=== PATIENT | male | born 1955 | race Caucasian/White ===

== ENCOUNTER 2021-06-29 15:26 | Emergency (ER) | payer BC, SELFPAY ==
[2021-06-29 15:29] VITALS: BP 155/91; PULSE 59; RESP 16; TEMP 36.6; O2SAT 97; BMI 26.4
--- NOTE | 2021-06-29 15:44 | CT_ITS ---
PROCEDURE: CT HEAD/BRAIN WO CON CLINICAL INDICATION: guajardo COMPARISON: No exams were available for comparison TECHNIQUE: Axial images obtained. All CT scans at the facility use one or more dose reduction, viz: automated exposure control, ma/kV adjustment per patient size (including targeted exams where dose is matched to indication, i.e. head), or iterative reconstruction technique. FINDINGS: There is a 3.4 x 3.5 cm ill-defined hypodense mass in the right frontal lobe with moderate surrounding edema causing a 1.4 cm midline shift toward the left with compression of the anterior horn of the right lateral ventricle. The margins of the mass are somewhat difficult to delineate. The temporal horn of the left lateral ventricle is slightly prominent suggesting early left-sided hydronephrosis. No intracranial hemorrhage is evident. No additional lesions apparent on this unenhanced exam. Mild mucosal thickening of the ethmoid sinuses. IMPRESSION: 3.5 cm right frontal lobe mass with moderate amount of surrounding edema and midline shift to the left of 1.4 cm with mild dilatation of the left lateral ventricle. Primary or metastatic neoplasm is considered. Suggest MRI without and with contrast for further evaluation. Dictated by: Jordan Luciano MD 06/29/2021 16:24 Jordan Luciano MD in OV 06/29/2021 16:25
--- NOTE | 2021-06-29 16:00 | PC.NURSE ---
pt in ct
[2021-06-29 16:21] VITALS: BP 151/91; PULSE 60; RESP 18; O2SAT 98
[2021-06-29 16:30] VITALS: BP 152/88; PULSE 60; RESP 18; O2SAT 96
--- NOTE | 2021-06-29 16:38 | HMH.EDGENADL ---
ED Disposition Clinical Impression: Brain mass Disposition: Xfer Short-Term Hosp Condition on Discharge: Good Referrals: Azra Echevarria MD [Primary Care Provider] - Time of Disposition: 16:45 - Critical Care Critical Care Time: No Attestation: On 06/29/21, the high probability of a clinically significant, sudden or life threatening deterioration of the following system(s) required my full and direct attention, intervention and personal management. The time I documented below is in addition to time spent performing reported procedures but includes the following listed in this critical care notation. Medical Decision Making - Medical Records Medical records reviewed: Yes: I reviewed the patient's medical records. - Michael Inquiry Pt receiving controlled substance: No Vital Signs: 06/29/21 15:29 06/29/21 16:21 Temperature 97.8 F Temperature Source Oral Pulse Rate 60 Pulse Rate [Right Radial] 59 L Respiratory Rate 16 18 Blood Pressure 151/91 H Blood Pressure [Right Arm] 155/91 H Blood Pressure Mean 111 Blood Pressure Mean [Right Arm] 112 Blood Pressure Source [Right Arm] Automatic Cuff Blood Pressure Position [Right Arm] Sitting 02 Sat by Pulse Oximetry 97 98 Oxygen Delivery Method Room Air Room Air Orders (Tests/Meds): ED MEDICATIONS Generic Name Dose Route Start Last Admin Trade Name Freq PRN Reason Stop Dose Admin Sodium Chloride 1,000 mls @ 999 mls/hr 06/29/21 15:45 06/29/21 16:14 Sod Chlor 0.9% 1000ml Bag IV 06/29/21 16:45 999 mls/hr .[id number] ALIVIA Administration Discontinued Medications Generic Name Dose Route Start Last Admin Trade Name Freq PRN Reason Stop Dose Admin Dexamethasone Sodium Phosphate 6 mg 06/29/21 16:30 06/29/21 16:36 Dexamethasone 4mg/Ml 1ml Vial IV 06/29/21 16:31 6 mg ONCE ONE Administration ORDERS Category Date Time Status Complete Blood Count Auto Diff Stat Lab 06/29/21 16:21 Received Comprehensive Metabolic Panel Stat Lab 06/29/21 16:21 Received - CT Data CT Scan: Head Time Received: 16:[address] Reviewed: Yes: I have reviewed the patient's CT results Preliminary Findings: Abnormal Findings Narrative: Likely mass with vasogenic edema and midline shift. Medical Decision Narrative: 65yo M evaluated for 4 weeks of persistent headache[address] CT scan completed after the patient is placed in a room and radiology reports a 3.5 cm right frontal lobe mass with edema and midline shift. Patient receiving IV dexamethasone and a call was placed to the [facility] for transfer. Case discussed with Dr. Sarmiento who agrees to evaluate the patient upon arrival to . General Adult HPI - General Chief complaint: Headache Stated complaint: CESPEDES Time Seen by Provider: 06/29/21 16:30 Mode of Arrival: Ambulatory Limitations: No Limitations Description of Symptoms (Recalled from ER Triage Doc. by RN): pt reports intermittent headache for approx 4 weeks. Pt reports saw his pcp last week, states he was treated for sinus infections, states he has been taking amoxicillin. Pt reports last week he did have sinus pressure but states that has since went away. pt denies dizziness or vision trouble. - History of Present Illness HPI narrative: 65yo M presents the emergency department secondary to frontal headache ongoing for 4 weeks. Patient's reports headaches are atypical for him. He was seen by his PCP nearly a week ago and started on antibiotics for possible sinusitis. He denies any visual change, nausea with vomiting, dizziness, loss of balance. He does complain that he feels forgetful since his headache started. He denies any previous history of stroke, does not use a blood thinner. Patient has never been a smoker. - Related Data Home Medications Medication Instructions Recorded Confirmed budesonide-formoterol HFA 80 2 puff INHALATION BID 04/20/20 04/16/21 mcg-4.5 mcg/actuation aerosol inhaler Allergies Allergy/Ad
--- NOTE | 2021-06-29 16:39 | PC.NURSE ---
pt up to restroom at this time
--- NOTE | 2021-06-29 16:40 | PC.NURSE ---
contacting [facility] per ER request
--- NOTE | 2021-06-29 16:41 | PC.NURSE ---
KENAN LOCKHART speaking with Dr. Sarmiento at at this time
[2021-06-29 16:43] LABS: Alanine Aminotransferase 23 U/L (12-78); Albumin Level 3.7 g/dl (3.5-5.0); Albumin/Globulin Ratio 1.2 (1.1-1.8); Alkaline Phosphatase 50 U/L (38-126); Anion Gap 9.3 mEq/L (5-15); Aspartate Amino Transferase 33 U/L (17-59); Bilirubin,Total 0.5 mg/dl (0.2-1.3); Blood Urea Nitrogen 13 mg/dl (9-20); Calcium 8.9 mg/dl (8.4-10.2); Carbon Dioxide 28 mmol/L (22.0-30.0); Chloride 103 mmol/L (98-107); Creatinine Clearance Estimated 95 mL/min (50-200); Estimated Glomerular Filt Rate 114 ml/min (>60); GFR (African American) 138 ML/MIN (>60); Glucose 145 mg/dl (74-100); Potassium 4.3 mmoL/L (3.5-5.1); Sodium 136 mmol/L (136-145); Total Protein,Serum 6.7 g/dl (6.3-8.2)
[2021-06-29 17:00] VITALS: BP 154/88; PULSE 62; RESP 18; O2SAT 97
[2021-06-29 17:01] LABS: Basophils # 0.1 K/mm3 (0-0.2); Basophils % 0.9 % (0.1-2.0); Eosinophils # 0.3 K/mm3 (0.0-0.4); Eosinophils % 2.8 % (0.1-12.0); Hematocrit 42.1 % (42.0-52.0); Lymphocytes # 1.4 K/mm3 (0.7-4.5); Lymphocytes % 14.8 % (10-50); Mean Corpuscular HGB Conc 33.2 g/dL (31.8-35.4); Mean Corpuscular Hemoglobin 31.7 pg (27.0-31.2); Mean Corpuscular Volume 95.6 fl (80-94); Mean Platelet Volume 7.9 fl (7.4-10.4); Monocytes # 0.6 K/mm3 (0.1-1.0); Monocytes % 5.8 % (1.7-9.3); Neutrophils # 7.3 K/mm3 (1.8-7.8); Neutrophils % 75.8 % (37.0-80.0); Platelet Count 363 K/mm3 (142-424); Red Cell Distribution Width 13.3 % (11.5-17.5); White Blood Count 9.6 K/mm3 (4.8-10.8)
--- NOTE | 2021-06-29 17:02 | PC.NURSE ---
report called to dallin stewart rn at ER at this time
[2021-06-29 17:21] VITALS: BP 154/81; PULSE 62; RESP 18; TEMP 36.3; O2SAT 98
== END 2021-06-29 17:21 | disposition short-term general hospital (02) ==
PROVIDERS: Emergency Provider Family Medicine; PCP Family Medicine
DX: D43.0 Neoplasm of uncertain behavior of brain, supratentorial (principal); R51.9 Headache, unspecified; R03.0 Elevated blood-pressure reading, without diagnosis of hypertension; J45.909 Unspecified asthma, uncomplicated
CPT/HCPCS: 70450; 80053; 85025; 96365; 99284

== ENCOUNTER → 2022-04-20 10:07 | Outpatient (CLI) | payer BC, SELFPAY ==
[2022-04-20 13:09] LABS: Basophils % 0.6 % (0.1-2.0); Eosinophils # 0.1 K/mm3 (0.0-0.4); Hematocrit 41.5 % (42.0-52.0); Hemoglobin 13.2 g/dL (14.1-18.0); Lymphocytes # 0.4 K/mm3 (0.7-4.5); Mean Corpuscular HGB Conc 31.8 g/dL (31.8-35.4); Mean Corpuscular Hemoglobin 33.6 pg (27.0-31.2); Mean Corpuscular Volume 105.7 fl (80-94); Mean Platelet Volume 8.1 fl (7.4-10.4); Monocytes # 0.2 K/mm3 (0.1-1.0); Monocytes % 6.9 % (1.7-9.3); Neutrophils # 2.5 K/mm3 (1.8-7.8); Neutrophils % 75.5 % (37.0-80.0); Platelet Count 283 K/mm3 (142-424); Red Blood Count 3.93 M/mm3 (4.60-6.20); Red Cell Distribution Width 14.1 % (11.5-17.5); White Blood Count 3.3 K/mm3 (4.8-10.8)
[2022-04-20 13:23] LABS: Alanine Aminotransferase 23 U/L (12-78); Albumin Level 3.7 g/dl (3.5-5.0); Albumin/Globulin Ratio 1.5 (1.1-1.8); Alkaline Phosphatase 71 U/L (38-126); Aspartate Amino Transferase 30 U/L (17-59); Bilirubin,Total < 0.1 mg/dl (0.2-1.3); Blood Urea Nitrogen 14 mg/dl (9-20); Calcium 8.5 mg/dl (8.4-10.2); Carbon Dioxide 25 mmol/L (22.0-30.0); Chloride 106 mmol/L (98-107); Estimated Glomerular Filt Rate 97 ml/min (>60); GFR (African American) 118 ML/MIN (>60); Globulin 2.5 g/dL (1.3-3.2); Glucose 73 mg/dl (74-100); Sodium 137 mmol/L (136-145); Total Protein,Serum 6.2 g/dl (6.3-8.2)
== END ==
PROVIDERS: PCP Family Medicine; Visit Provider Internal Medicine Hematology & Oncology
DX: G93.89 Other specified disorders of brain (principal); C71.9 Malignant neoplasm of brain, unspecified; Z79.899 Other long term (current) drug therapy
CPT/HCPCS: 36415; 80053; 85025

== ENCOUNTER → 2022-05-18 11:55 | Outpatient (CLI) | payer BC, SELFPAY ==
[2022-05-18 12:35] LABS: Basophils % 0.7 % (0.1-2.0); Eosinophils # 0.3 K/mm3 (0.0-0.4); Eosinophils % 6.7 % (0.1-12.0); Hematocrit 37.9 % (42.0-52.0); Hemoglobin 12.1 g/dL (14.1-18.0); Lymphocytes # 0.5 K/mm3 (0.7-4.5); Lymphocytes % 10.6 % (10-50); Mean Corpuscular Hemoglobin 33.8 pg (27.0-31.2); Mean Corpuscular Volume 105.6 fl (80-94); Mean Platelet Volume 7.6 fl (7.4-10.4); Monocytes # 0.5 K/mm3 (0.1-1.0); Monocytes % 10.1 % (1.7-9.3); Neutrophils # 3.3 K/mm3 (1.8-7.8); Neutrophils % 71.9 % (37.0-80.0); Platelet Count 240 K/mm3 (142-424); Red Blood Count 3.59 M/mm3 (4.60-6.20); Red Cell Distribution Width 13.6 % (11.5-17.5); White Blood Count 4.6 K/mm3 (4.8-10.8)
[2022-05-18 13:06] LABS: Alanine Aminotransferase 19 U/L (12-78); Albumin Level 3.7 g/dl (3.5-5.0); Albumin/Globulin Ratio 1.5 (1.1-1.8); Alkaline Phosphatase 68 U/L (38-126); Aspartate Amino Transferase 26 U/L (17-59); Bilirubin,Total 0.1 mg/dl (0.2-1.3); Blood Urea Nitrogen 12 mg/dl (9-20); Calcium 8.7 mg/dl (8.4-10.2); Carbon Dioxide 26 mmol/L (22.0-30.0); Chloride 106 mmol/L (98-107); Estimated Glomerular Filt Rate 114 ml/min (>60); GFR (African American) 137 ML/MIN (>60); Globulin 2.5 g/dL (1.3-3.2); Glucose 86 mg/dl (74-100); Potassium 4.2 mmoL/L (3.5-5.1); Total Protein,Serum 6.2 g/dl (6.3-8.2)
[2022-05-18 13:13] LABS: Anion Gap 9.2 mEq/L (5-15); Sodium 137 mmol/L (136-145)
== END ==
PROVIDERS: PCP Family Medicine; Visit Provider Internal Medicine Hematology & Oncology
DX: C71.9 Malignant neoplasm of brain, unspecified (principal); Z79.899 Other long term (current) drug therapy
CPT/HCPCS: 36415; 80053; 85025

== ENCOUNTER 2023-10-27 17:20 | Outpatient (CLI) | payer MEDICARE, SELFPAY ==
--- NOTE | 2023-10-27 17:35 | MR_ITS ---
PROCEDURE INFORMATION: Exam: MR Head Without and With Contrast Exam date and time: 10/27/2023 6:01 PM Age: 68 years old Clinical indication: Pain; Headache; Prior surgery; Surgery date: 6+ months; Surgery type: Brain surgery; Additional info: Neoplasm of head TECHNIQUE: Imaging protocol: Magnetic resonance imaging of the head without and with contrast. Contrast material: ISOVUE; Contrast volume: 20 ml; Contrast route: IV; COMPARISON: CT HEAD/BRAIN WO CON 06/29/2021 3:56 PM FINDINGS: Major vascular flow voids at the skull base are preserved. No extra-axial fluid collection. There is irregular pathologic enhancement centered at the right frontal lobe measuring up to 7.0 cm AP by 5.0 cm transverse by 4.8 cm cc. Region of abnormal enhancement extends to the subependymal region of the anterior right lateral ventricle. There is extensive abnormal nonenhancing T2 prolongation involving the right cerebrum extending to the left frontal lobe across the corpus callosum. Significant intracranial mass effect with midline shift to the left measuring 11 mm. There is subfalcine herniation. Partial effacement of the right lateral ventricle. No diffusion restriction to indicate acute ischemic infarct. There is right-sided craniotomy. Mild paranasal sinus disease. No significant mastoid effusion. IMPRESSION: 1. Large region of pathologic enhancement centered at the right frontal lobe anteriorly measuring up to 7.0 x 5.0 x 4.8 cm with extensive adjacent nonenhancing T2 prolongation extending to the left frontal lobe via the corpus callosum. Findings compatible with residual/recurrent tumor. T2 prolongation may be on the basis of edema, posttreatment change or infiltrative tumor. 2. Mass effect with midline shift to the left measuring 11 mm. Subfalcine herniation. 3. Additional findings as above.
[2023-10-27 18:14] LABS: Blood Urea Nitrogen 22 mg/dl (9-20); Estimated Glomerular Filt Rate 61 ml/min (>60); GFR (African American) 73 ML/MIN (>60)
[2023-10-27] MEDS: SODIUM CHLORIDE 0.9% 10ML SYR (RAD ONLY) 10 ML IV (19:03)
[2023-10-27] MEDS: GADOTERIDOL INJ 17ML SYRINGE 20 ML IV (19:03)
== END 2023-10-27 23:59 ==
LOC: RAD 17:21
PROVIDERS: PCP Family Medicine; Visit Provider Family Medicine
DX: D49.89 Neoplasm of unspecified behavior of other specified sites (principal)
CPT/HCPCS: 36415; 70553; 82565; 84520; A9576

== ENCOUNTER 2023-10-30 15:33 | Emergency (ER) | payer MEDICARE, SELFPAY ==
[2023-10-30 15:34] VITALS: BP 133/76; PULSE 73; RESP 20; TEMP 36.7; O2SAT 96; BMI 29.4
--- NOTE | 2023-10-30 16:34 | ED_ITS ---
Discharge Plan Disposition Patient Disposition: Xfer Other Chief Complaint: Headache Prescriptions Prescriptions: No Action budesonide-formoterol [Symbicort] 80-4.5 mcg/actuation HFA aerosol inhaler 2 puff INHALATION BID Referrals Follow up/Referrals: Azar Echevarria MD [Primary Care Provider] - See instructions Clinical Impressions Clinical Impression: Vasogenic brain edema, Brain mass, Midline shift of brain, Brain herniation Discharge ED Provider: Ishmael Traylor General Adult HPI General Chief complaint: Headache Stated complaint: MRI showed a growing tumor in brain Time Seen by Provider: 10/30/23 16:07 Mode of Arrival: Ambulatory Source of Information: Patient Limitations: No Limitations Description of Symptoms (Recalled from ER Triage Doc. by RN): pt was seen at [facility] on monday and had mri done here at [facility] monday night. CC [phone] called patient at home today and told them to get to closest ER due to MRI results that showed increase brain pressure. upon triage patient has no worsening s/s and is neurologically intact and appropriate. pt states he was given steroids on monday and reports feeling better/improved over the weekend and today. pt has hx of brain tumor that was removed in aug 2021 at but patient was not happy last time at so this time when s/s started back again they requested to go to [facility] History of Present Illness HPI narrative: Patient is a 68-year-old male who was diagnosed in 2020 with a glioblastoma multiforme stage IV underwent resection [facility] and was having surveillance scans done up through April of this last year at which point they had a small lesion that they did not know whether or not it was a recurrence of disease or not. At that point the family was not happy with the care that they were receiving and they went and found a new doctor at [facility], Dr. Osborne. The patient since the end of August has been having difficulty with his left upper extremity and states that he had an MRI that was done this past Monday he was started on some steroids at that time but his neurosurgeon called him 1 hour prior to arrival today and told him to come to the emergency department because of significant edema. He is not aware of any other findings etc. The patient is not on hospice and has had significant quality of life recently and has been doing very well since his surgery in 2020. Related Data Home Medications Medication Instructions Recorded Confirmed budesonide-formoterol HFA 80 2 puff inhalation BID 04/20/20 04/16/21 mcg-4.5 mcg/actuation aerosol inhaler (Symbicort) Allergies Allergy/AdvReac Type Severity Reaction Status Date / Time FISH PROTEIN Allergy Unknown Uncoded 04/20/20 08:28 [facility] Disclaimer: The information contained in this section may have been updated after the patient was seen, as this information can be updated by other users. Social History Smoking Status: Never smoker alcohol intake: current substance use type: denies use current occupational status: employed Travel in the last 8 weeks: Inside the [facility] ([place]) household members: family housing: house ROS Obtained: Yes All systems reviewed & no additional complaints except as documented Physical Exam General General appearance: alert Respiratory Respiratory exam: Present normal lung sounds bilaterally Cardiovascular Cardiovascular exam: Present regular rate Neurological Exam Neurological exam: Present alert Medical Decision Making Michael Inquiry Pt receiving controlled substance: No Michael was queried for this patient: No Risks and benefits of using a controlled substance: were discussed with pt by me Vital Signs: 10/30/23 15:34 Temperature 98.0 F Temperature Source Oral Pulse Rate [Right Radial] 73 Respiratory Rate 20 Blood Pressure [Right Arm] 133/76 Blood Pressure Mean [Right Arm] 95 02 Sat by Pulse Oximetry 96 Oxygen Delivery Method Room Air Orders (Tests/Meds): ED MEDICATIONS Generic Name Dose Route Start Last Admin Trade Name Freq PRN Reason Stop Dose Admin Sodium Chloride 10 ml 10/30/23 16:48 Sodium Chloride 0.9% 10ml Flush Syringe IV 11/29/23 16:47 NEEDED PRN Maintain IV Site Discontinued Medications Generic Name Dose Route Start Last Admin Trade Name Freq PRN Reason Stop Dose Admin Dexamethasone Sodium Phosphate 10 mg 10/30/23 16:33 10/30/23 16:50 Dexamethasone 4mg/Ml 1ml Vial IV 10/30/23 16:34 10 mg ONCE ONE Administration Medical Decision Narrative: I reviewed the patient's MRI from the hospital which shows a 7 x 5 cm mass which is most likely recurrent tumor with significant vasogenic edema midline shift and subfalcine herniation. 10 mg of IV dexamethasone have been administered. I had extensive discussion with the patient regarding goals of care and he and his family are not sure as to exactly what they want to do. In the meantime we will go ahead and discussed the case with Dr. Osborne at [facility]. The patient certainly needs to be in for another neurosurgeon with the significant abnormalities that we are currently seeing on the MRI. They are aware of this. After I discussed the case with his physician at [facility] we will again discuss the case with the patient and see what he would like to do. Reassessment 5:57 PM I discussed the case with Dr. Osborne at the [facility] who very strongly advised that the patient be transferred emergently to be seen by neurosurgeon. Given the fact that we have only local EMS crews and the patient is not unstable enough to fly at the moment we opted to not utilize local EMS crew to take the patient to [place] and we both agreed that the local neurosurgical intervention or evaluation was most warranted. Dr. Rubio very specifically advised that the patient go to the [facility] which I agreed with and discussed the case with the patient and the patient's family and they agreed to this as well. They are not sure if an operation is offered if they would like to have that done at [facility] but know that that is the purpose for the transfer. I spoke with Dr. Philippe as well as Dr. Horner at the transfer center and everyone is on the same page with this. It is possible that patient may refuse transfer or go comfort care once he is evaluated by neurosurgery is possible that he may want to be transferred to [facility] depending on the conversation but he is specifically being transferred to for discussion of possible neurosurgical intervention in the acute care setting. Images were shared. Patient was given 10 of IV dexamethasone. He was transferred in stable condition with GCS of 15 and his only neurologic deficit at the moment is left upper extremity weakness. Critical Care Critical Care Time Critical Care Time: Yes Attestation: On 10/30/23, the high probability of a clinically significant, sudden or life threatening deterioration of the following system(s) required my full and direct attention, intervention and personal management. The time I documented below is in addition to time spent performing reported procedures but includes the following listed in this critical care notation. Total Time Total Critical Care Time: 35
[2023-10-30] MEDS: DEXAMETHASONE 4MG/ML 1ML VIAL 10 MG IV (16:50)
--- NOTE | 2023-10-30 17:29 | PC.NURSE ---
called for transfer, dr narvaez speaking to er transfer center
--- NOTE | 2023-10-30 17:46 | PC.NURSE ---
Dr Hayes and Dr Horner accepting pt.
--- NOTE | 2023-10-30 17:57 | PC.NURSE ---
Called report to Transition Unit 2 room M [facility]. all questions answered, ems has been made aware of transfer
[2023-10-30 18:18] VITALS: BP 134/78; PULSE 65; RESP 20; TEMP 36.7; O2SAT 100
== END 2023-10-30 18:28 | disposition other institution (70) ==
PROVIDERS: Emergency Provider Student in an Organized Health Care Education/Training Program; PCP Family Medicine
DX: G93.6 Cerebral edema (principal); G93.5 Compression of brain; G93.89 Other specified disorders of brain; R90.89 Other abnormal findings on diagnostic imaging of central nervous system
CPT/HCPCS: 96374; 99285

== ENCOUNTER 2023-11-15 03:38 | Emergency (ER) | payer MEDICARE, SELFPAY ==
[2023-11-15] VITALS (17 sets, daily range): BP systolic 108–206; BP diastolic 81–105; PULSE 58–87; RESP 16–30; TEMP 36.9–38.5; O2SAT 93–100; BMI 29.4
--- NOTE | 2023-11-15 03:41 | ED_ITS ---
Discharge Plan Disposition Patient Disposition: Xfer Other Prescriptions Prescriptions: No Action budesonide-formoterol [Symbicort] 80-4.5 mcg/actuation HFA aerosol inhaler 2 puff INHALATION BID Referrals Follow up/Referrals: Azar Echevarria MD [Primary Care Provider] - See instructions Clinical Impressions Clinical Impression: Acute facial pain, Seizure-like activity, Post-operative complication, GBM (glioblastoma multiforme), Status post craniotomy Coma Qualifiers: Coma depth: Catarina coma 3-8 Coma timing: unspecified coma timing Qualified Code(s): R40.2430 - Shaji coma scale score 3-8, unspecified time Discharge ED Provider: Kaleb Sims General Adult HPI <Kaleb Sims MD - Last Filed: 11/15/23 07:30> General Chief complaint: PAIN Stated complaint: brain surgery 2 weeks ago, headache, swelling Time Seen by Provider: 11/15/23 03:41 History of Present Illness HPI narrative: 68-year-old male with history of glioblastoma presents with worsening facial pain. Patient had glioblastoma resected several years ago. He had recurrence of symptoms and had severe edema approximately 2 weeks ago, was transferred to from this hospital and was admitted for emergency surgery with neurosurgery. He had resection of glioblastoma at that time. He has been doing relatively well in the interim. He has been taking dexamethasone and Tylenol. He developed more severe pain over the right forehead. He has developed swelling in that area as well as swelling over the eye. Reports no fever at home. Related Data Home Medications Medication Instructions Recorded Confirmed budesonide-formoterol HFA 80 2 puff inhalation BID 04/20/20 04/16/21 mcg-4.5 mcg/actuation aerosol inhaler (Symbicort) Allergies Allergy/AdvReac Type Severity Reaction Status Date / Time FISH PROTEIN Allergy Unknown Uncoded 04/20/20 08:28 PFS <Kaleb Sims MD - Last Filed: 11/15/23 07:30> [facility] Disclaimer: The information contained in this section may have been updated after the patient was seen, as this information can be updated by other users. Social History Smoking Status: Never smoker alcohol intake: current substance use type: denies use current occupational status: employed Travel in the last 8 weeks: Inside the [facility] ([place]) household members: family housing: house <Kaleb Sims MD - Last Filed: 11/15/23 07:30> ROS Obtained: Yes All systems reviewed & no additional complaints except as documented Physical Exam <Kaleb Sims MD - Last Filed: 11/15/23 07:30> General General appearance: alert Comment: Uncomfortable appearing Head Head exam: atraumatic and other (Patient has semicircular line of doroteo over his craniotomy site in the right frontal parietal scalp. The staple line is well appearing, no bleeding, no erythema. The skin between the staple line and the eye is mildly erythematous and warm, no induration. The eyelids are edematous) Eye Eye exam: Present PERRL, EOMI and other (Pearlescent edema of the right upper and lower eyelid, minimal conjunctival injection noted. Patient reports normal vision.) ENT ENT exam: Present normal oropharynx and normal external ear exam Neck Neck exam: Present normal inspection and full ROM Chest Chest inspection: Present normal inspection and symmetric chest wall rise; Absent tenderness Respiratory Respiratory exam: Present normal lung sounds bilaterally; Absent respiratory distress Cardiovascular Cardiovascular exam: Present regular rate and normal rhythm Abdominal Exam Abdominal exam: Present soft; Absent distention, tenderness or guarding Extremities Exam Extremities exam: Present normal inspection; Absent edema or joint swelling Back Exam Back exam: Present normal inspection; Absent tenderness Neurological Exam Neurological exam: Present alert and oriented X3; Absent motor sensory deficit Psychiatric Psychiatric exam: Present normal affect and normal mood Skin Skin exam: Present warm, dry and normal color Lymphatic Lymphatic Findings: no adenopathy Medical Decision Making <Kaleb Sims MD - Last Filed: 11/15/23 07:30> Medical Records Medical records reviewed: Yes I reviewed the patient's medical records. Michael Inquiry Pt receiving controlled substance: No Michael was queried for this patient: No Vital Signs: 11/15/23 03:40 11/15/23 04:01 11/15/23 04:30 Temperature 98.4 F Temperature Source Oral Pulse Rate 74 79 Pulse Rate [Right Radial] 81 Respiratory Rate 20 Blood Pressure 108/94 L 164/89 H Blood Pressure [Right Arm] 170/89 H Blood Pressure Mean [Right Arm] 116 Blood Pressure Source [Right Arm] Automatic Cuff Blood Pressure Position [Right Arm] Sitting 02 Sat by Pulse Oximetry 98 98 97 Oxygen Delivery Method Room Air Room Air Room Air 11/15/23 05:20 11/15/23 05:30 11/15/23 05:47 Temperature Temperature Source Pulse Rate 87 85 76 Pulse Rate [Right Radial] Respiratory Rate Blood Pressure 188/90 H 158/88 H 158/88 H Blood Pressure [Right Arm] Blood Pressure Mean [Right Arm] Blood Pressure Source [Right Arm] Blood Pressure Position [Right Arm] 02 Sat by Pulse Oximetry 93 L 95 96 Oxygen Delivery Method Room Air Room Air Room Air Lab Data Lab results reviewed: Yes I reviewed the patient's lab results. Lab Results 11/15/23 04:08: WBC 17.1 H, RBC 4.30 L, Hgb 14.3, Hct 42.5, MCV 98.9 H, MCH 33.2 H, MCHC 33.6, RDW 14.0, Plt Count 224, MPV 8.0, Neut % (Auto) 92.5 H, Lymph % (Auto) 3.8 L, [place] % (Auto) 3.3, Eos % (Auto) 0.3, Baso % (Auto) 0.1, Neut # (Auto) 15.8 H, Lymph # (Auto) 0.7, [place] # (Auto) 0.6, Eos # (Auto) 0.1, Baso # (Auto) 0.0, Total Counted 100, Neutrophils % (Manual) 90 H, Lymphocytes % (Manual) 6 L, Monocytes % (Manual) 4, Platelet Estimate Normal, Macrocytosis 1+, Sodium 134 L, Potassium 4.4, Chloride 103, Carbon Dioxide 33 H, Anion Gap 2.4 L, BUN 20, Creatinine 0.80, Estimated Creat Clear 101, Estimated GFR 97, Est GFR ( Amer) 117, Glucose 133 H, Calcium 7.9 L, Total Bilirubin 0.4, AST 36, ALT 52, Alkaline Phosphatase 59, Total Protein 5.8 L, Albumin 3.2 L, Globulin 2.6, Albumin/Globulin Ratio 1.2 11/15/23 04:08 11/15/23 04:08 Orders (Tests/Meds): ED MEDICATIONS Generic Name Dose Route Start Last Admin Trade Name Freq PRN Reason Stop Dose Admin Propofol 100 mls @ 5.906 mls/hr 11/15/23 07:30 11/15/23 07:31 Diprivan 10mg/Ml 100ml Bottle IV 12/15/23 07:29 10 mcg/kg/min .[id number] ALIVIA 5.91 mls/hr Administration Protocol 10 MCG/KG/MIN Discontinued Medications Generic Name Dose Route Start Last Admin Trade Name Kassy PRN Reason Stop Dose Admin Dexamethasone Sodium Phosphate 4 mg 11/15/23 07:30 11/15/23 07:38 Dexamethasone 4mg/Ml 1ml Vial IV 11/15/23 07:31 4 mg ONCE ONE Administration Diazepam 2 mg 11/15/23 05:03 11/15/23 05:12 Diazepam 10mg/2ml Syringe IV 11/15/23 05:04 2 mg ONCE ONE Administration Levetiracetam 4,000 mg/ Sodium 140 mls @ 280 mls/hr 11/15/23 07:13 11/15/23 07:26 Chloride IV 11/15/23 07:14 280 mls/hr ONCE ONE Administration Iopamidol 100 ml 11/15/23 05:22 11/15/23 05:23 Iopamidol-370 (76%);100ml Bottle IV 11/15/23 05:23 100 ml ONCE ONE Administration Lidocaine 1 each 11/15/23 03:57 11/15/23 04:03 Lidocaine 5% Transdermal Patch TP 11/15/23 03:58 1 each ONCE ONE Administration Morphine Sulfate 4 mg 11/15/23 04:02 11/15/23 04:07 Morphine 4mg/Ml Syringe IV 11/15/23 04:03 4 mg ONCE ONE Administration Ondansetron HCl 4 mg 11/15/23 04:04 11/15/23 04:07 Ondansetron 4mg/2ml Vial IV 11/15/23 04:05 4 mg ONCE ONE Administration Ondansetron HCl 4 mg 11/15/23 05:53 11/15/23 05:55 Ondansetron 4mg/2ml Vial IV 11/15/23 05:54 4 mg ONCE ONE Administration Promethazine HCl 25 mg 11/15/23 05:03 11/15/23 05:12 Promethazine Hcl 25mg/Ml 1ml Vial IV 11/15/23 05:04 25 mg ONCE ONE Administration Sodium Chloride 25 ml 11/15/23 05:03 Sodium Chloride 0.9% 25ml Bag IV 11/15/23 05:04 ONCE ONE Sodium Chloride 10 ml 11/15/23 05:22 11/15/23 05:23 Sodium Chloride 0.9% 10ml Syr (Rad Only) IV 11/15/23 05:23 10 ml ONCE ONE Administration ORDERS Category Date Time Status CT head/brain wo/w con Stat Cat Scan 11/15/23 04:02 Completed CXR --portable [XR chest portable] Stat Exams 11/15/23 06:23 Taken Chest XR -- portable [XR chest portable] Stat Exams 11/15/23 07:41 Taken KUB (single view) [XR KUB] Stat Exams 11/15/23 07:58 Ordered CBC w/Auto Diff [Complete Blood Count Auto Diff] Stat Lab 11/15/23 04:08 Completed CMP [Comprehensive Metabolic Panel] Stat Lab 11/15/23 04:08 Completed Blood Culture Stat Micro 11/15/23 04:08 Received Sputum Culture & Gram Stain Stat Micro 11/15/23 07:48 Received Medical Decision Narrative: 68-year-old male with history of glioblastoma status post recent craniotomy and resection 2 weeks ago presents with worsening facial edema, pain inferior to the craniotomy site. History was obtained interactive discussion with patient, family, chart review. On arrival, patient is [afebrile, hemodynamically stable, satting appropriately, alert, oriented x4, GCS 15], moving all extremities spontaneously. Full physical exam performed and significant for erythema and edema without induration or purulent drainage of the skin inferior to the craniotomy site. The incision site is otherwise well-appearing. There is edema of the eyelids concerning for possible preseptal cellulitis. Differential includes but is not limited to abscess, cellulitis, preseptal cellulitis, preseptal cellulitis, intracranial bleeding, intracranial abscess. Patient was given 4 mg Zofran, 4 mg morphine for symptomatic management and correction of underlying abnormalities. Workup initiated including CBC CMP blood cultures CT head with, CT head without. Prior to the CT I discussed with patient regarding his reported IV contrast allergy. He reports that he has never had an anaphylactic reaction, he does not get a rash, no airway swelling, but every time he gets IV contrast he has severe nausea and vomiting. I discussed with him the risks and benefits and we elected to proceed with the IV contrast. After CT patient had copious and persistent vomiting. Was given additional Zofran, Phenergan and 2 mg of Valium for nausea and vomiting. Patient continued to have fairly significant vomiting and may have had aspiration. X-ray was ordered. Patient is somewhat drowsy after the antiemetic medications. Laboratory workup independently interpreted by me and significant for leukocytosis with white count of 17, unclear diagnostic value given recent steroid usage. Unremarkable CMP Imaging independently interpreted by me and significant for postoperative changes noted within the brain with extensive right frontal lobe edema and some blood within the right subdural space and small amount of pneumocephalus. Small amount of shift noted. The subcutaneous tissues of the frontal scalp show edema and possible small fluid collection.. See radiology read for full review of final results. Given concern for developing postoperative infection, the [facility] was called for discussion with neurosurgery. On further reassessment, patient continues to vomit. His mental status has worsened despite having time for the medications to metabolize, he is now GCS of 6 and is not responding to commands where he previously was completely alert and oriented. He appears to have some involuntary movements of his upper extremities that are concerning for seizure/status epilepticus. Patient was loaded with 4 g of Keppra and given dexamethasone. Given worsening mental status, aspiration risk and concern for ongoing seizure activity, patient will be intubated for airway protection. <Leonardo Chandler MD - Last Filed: 11/15/23 08:04> Vital Signs: 11/15/23 03:40 11/15/23 04:01 11/15/23 04:30 Temperature 98.4 F Temperature Source Oral Pulse Rate 74 79 Pulse Rate [Right Radial] 81 Respiratory Rate 20 Blood Pressure 108/94 L 164/89 H Blood Pressure [Right Arm] 170/89 H Blood Pressure Mean [Right Arm] 116 Blood Pressure Source [Right Arm] Automatic Cuff Blood Pressure Position [Right Arm] Sitting 02 Sat by Pulse Oximetry 98 98 97 Oxygen Delivery Method Room Air Room Air Room Air 11/15/23 05:20 11/15/23 05:30 11/15/23 05:47 Temperature Temperature Source Pulse Rate 87 85 76 Pulse Rate [Right Radial] Respiratory Rate Blood Pressure 188/90 H 158/88 H 158/88 H Blood Pressure [Right Arm] Blood Pressure Mean [Right Arm] Blood Pressure Source [Right Arm] Blood Pressure Position [Right Arm] 02 Sat by Pulse Oximetry 93 L 95 96 Oxygen Delivery Method Room Air Room Air Room Air Lab Data Lab Results 11/15/23 04:08: WBC 17.1 H, RBC 4.30 L, Hgb 14.3, Hct 42.5, MCV 98.9 H, MCH 33.2 H, MCHC 33.6, RDW 14.0, Plt Count 224, MPV 8.0, Neut % (Auto) 92.5 H, Lymph % (Auto) 3.8 L, [place] % (Auto) 3.3, Eos % (Auto) 0.3, Baso % (Auto) 0.1, Neut # (Auto) 15.8 H, Lymph # (Auto) 0.7, [place] # (Auto) 0.6, Eos # (Auto) 0.1, Baso # (Auto) 0.0, Total Counted 100, Neutrophils % (Manual) 90 H, Lymphocytes % (Manual) 6 L, Monocytes % (Manual) 4, Platelet Estimate Normal, Macrocytosis 1+, Sodium 134 L, Potassium 4.4, Chloride 103, Carbon Dioxide 33 H, Anion Gap 2.4 L, BUN 20, Creatinine 0.80, Estimated Creat Clear 101, Estimated GFR 97, Est GFR ( Amer) 117, Glucose 133 H, Calcium 7.9 L, Total Bilirubin 0.4, AST 36, ALT 52, Alkaline Phosphatase 59, Total Protein 5.8 L, Albumin 3.2 L, Globulin 2.6, Albumin/Globulin Ratio 1.2 Orders (Tests/Meds): ED MEDICATIONS Generic Name Dose Route Start Last Admin Trade Name Freq PRN Reason Stop Dose Admin Propofol 100 mls @ 5.906 mls/hr 11/15/23 07:30 11/15/23 07:31 Diprivan 10mg/Ml 100ml Bottle IV 12/15/23 07:29 10 mcg/kg/min .[id number] ALIVIA 5.91 mls/hr Administration Protocol 10 MCG/KG/MIN Discontinued Medications Generic Name Dose Route Start Last Admin Trade Name Freq PRN Reason Stop Dose Admin Dexamethasone Sodium Phosphate 4 mg 11/15/23 07:30 11/15/23 07:38 Dexamethasone 4mg/Ml 1ml Vial IV 11/15/23 07:31 4 mg ONCE ONE Administration Diazepam 2 mg 11/15/23 05:03 11/15/23 05:12 Diazepam 10mg/2ml Syringe IV 11/15/23 05:04 2 mg ONCE ONE Administration Levetiracetam 4,000 mg/ Sodium 140 mls @ 280 mls/hr 11/15/23 07:13 11/15/23 07:26 Chloride IV 11/15/23 07:14 280 mls/hr ONCE ONE Administration Iopamidol 100 ml 11/15/23 05:22 11/15/23 05:23 Iopamidol-370 (76%);100ml Bottle IV 11/15/23 05:23 100 ml ONCE ONE Administration Lidocaine 1 each 11/15/23 03:57 11/15/23 04:03 Lidocaine 5% Transdermal Patch TP 11/15/23 03:58 1 each ONCE ONE Administration Morphine Sulfate 4 mg 11/15/23 04:02 11/15/23 04:07 Morphine 4mg/Ml Syringe IV 11/15/23 04:03 4 mg ONCE ONE Administration Ondansetron HCl 4 mg 11/15/23 04:04 11/15/23 04:07 Ondansetron 4mg/2ml Vial IV 11/15/23 04:05 4 mg ONCE ONE Administration Ondansetron HCl 4 mg 11/15/23 05:53 11/15/23 05:55 Ondansetron 4mg/2ml Vial IV 11/15/23 05:54 4 mg ONCE ONE Administration Promethazine HCl 25 mg 11/15/23 05:03 11/15/23 05:12 Promethazine Hcl 25mg/Ml 1ml Vial IV 11/15/23 05:04 25 mg ONCE ONE Administration Sodium Chloride 25 ml 11/15/23 05:03 Sodium Chloride 0.9% 25ml Bag IV 11/15/23 05:04 ONCE ONE Sodium Chloride 10 ml 11/15/23 05:22 11/15/23 05:23 Sodium Chloride 0.9% 10ml Syr (Rad Only) IV 11/15/23 05:23 10 ml ONCE ONE Administration ORDERS Category Date Time Status CT head/brain wo/w con Stat Cat Scan 11/15/23 04:02 Completed CXR --portable [XR chest portable] Stat Exams 11/15/23 06:23 Taken Chest XR -- portable [XR chest portable] Stat Exams 11/15/23 07:41 Taken KUB (single view) [XR KUB] Stat Exams 11/15/23 07:58 Ordered CBC w/Auto Diff [Complete Blood Count Auto Diff] Stat Lab 11/15/23 04:08 Completed CMP [Comprehensive Metabolic Panel] Stat Lab 11/15/23 04:08 Completed Blood Culture Stat Micro 11/15/23 04:08 Received Sputum Culture & Gram Stain Stat Micro 11/15/23 07:48 Received Medical Decision Narrative: 68-year-old male with history of glioblastoma status post recent craniotomy and resection 2 weeks ago presents with worsening facial edema, pain inferior to the craniotomy site. History was obtained interactive discussion with patient, family, chart review. On arrival, patient is afebrile, hemodynamically stable, satting appropriately, alert, oriented x4, GCS 15, moving all extremities spontaneously. Full physical exam performed and significant for erythema and edema without induration or purulent drainage of the skin inferior to the craniotomy site. The incision site is otherwise well-appearing. There is edema of the eyelids concerning for possible preseptal cellulitis. Differential includes but is not limited to abscess, cellulitis, preseptal cellulitis, preseptal cellulitis, intracranial bleeding, intracranial abscess. Patient was given 4 mg Zofran, 4 mg morphine for symptomatic management and correction of underlying abnormalities. Workup initiated including CBC CMP blood cultures CT head with, CT head without. Prior to the CT I discussed with patient regarding his reported IV contrast allergy. He reports that he has never had an anaphylactic reaction, he does not get a rash, no airway swelling, but every time he gets IV contrast he has severe nausea and vomiting. I discussed with him the risks and benefits and we elected to proceed with the IV contrast. After CT patient had copious and persistent vomiting. Was given additional Zofran, Phenergan and 2 mg of Valium for nausea and vomiting. Patient continued to have fairly significant vomiting and may have had aspiration. X-ray was ordered. Patient is somewhat drowsy after the antiemetic medications. Laboratory workup independently interpreted by me and significant for leukocytosis with white count of 17, unclear diagnostic value given recent steroid usage. Unremarkable CMP Imaging independently interpreted by me and significant for postoperative changes noted within the brain with extensive right frontal lobe edema and some blood within the right subdural space and small amount of pneumocephalus. Small amount of shift noted. The subcutaneous tissues of the frontal scalp show edema and possible small fluid collection.. See radiology read for full review of final results. Given concern for developing postoperative infection, the [facility] transfer center was called for discussion with neurosurgery. On further reassessment, patient continues to vomit. His mental status has worsened despite having time for the medications to metabolize, he is now GCS of 6 and is not responding to commands where he previously was completely alert and oriented. He appears to have some involuntary movements of his upper extremities that are concerning for seizure/status epilepticus. Patient was michaela ded with 4 g of Keppra and given dexamethasone. Given worsening mental status, aspiration risk and concern for ongoing seizure activity, patient will be intubated for airway protection. Geraldine: I assume primary responsibility for this patient after signout from previous physician. After shift change, Dr. Sims assisted with continued patient care. Patient was recently given multiple sedative medications including Valium, Phenergan, among others in order to prevent vomiting and allow for obtaining CT scans of the head. Because sedative medications used, initially unsure if patient mental status to medications versus worsening medical condition. On my exam, patient has GCS 6, patient not following peripheral or central commands. Right eye 4 mm and minimally reactive, left eye 3 mm and minimally reactive. Patient having flexion of left upper extremity, extension of right upper extremity with associated intermittent clonic movements. Saturating 95% on room air intermittently vomiting. At this time it was opted to proceed with intubation after discussing goals of care with family. Intubation was performed by me, Dr. Sims contacted [facility] for further discussion of definitive care after transfer. Goals of care discussion was had with patient's power of trade mark attorney who is at bedside, she opted for full code at this time. Patient was given Keppra, dexamethasone. Patient was intubated using succinylcholine and etomidate. Postintubation chest x-ray was ordered, OG tube was placed. Postintubation sedation with propofol given concern for possible seizures. Postintubation chest x-ray with tube in place. OG tube difficult to discern inferior to cardiac pad, however it appears to be below the diaphragm. Gastric contents and tube. KUB was ordered to confirm. Because patient high risk for clinical decompensation if discharged, deemed appropriate for transfer and inpatient admission. Results were relayed to patient family who voiced understanding and patient was agreeable to transfer, inpatient admission, and management. Patient was graciously accepted and transferred to [facility] for further definitive management, under Dr. Mcneal. Procedures <Kaleb Sims MD - Last Filed: 11/15/23 07:30> Risk/Benefits of Procedure(s) Were Explained: Yes Critical Care <Kaleb Sims MD - Last Filed: 11/15/23 07:30> Critical Care Time Critical Care Time: Yes Attestation: On 11/15/23, the high probability of a clinically significant, sudden or life threatening deterioration of the following system(s) respiratory required my full and direct attention, intervention and personal management. The time I documented below is in addition to time spent performing reported procedures but includes the following listed in this critical care notation. Total Time Total Critical Care Time: 45 <Leonardo Chandler MD - Last Filed: 11/15/23 08:04> Total Time Total Critical Care Time: 60
--- NOTE | 2023-11-15 04:02 | CT_ITS ---
PROCEDURE INFORMATION: Exam: CT Head Without And With Contrast Exam date and time: 11/15/2023 4:58 AM Age: 68 years old Clinical indication: Pain; Additional info: Recent gbm resection, pain/swelling at incision TECHNIQUE: Imaging protocol: Computed tomography of the head without and with contrast. Radiation optimization: All CT scans at this facility use at least one of these dose optimization techniques: automated exposure control; mA and/or kV adjustment per patient size (includes targeted exams where dose is matched to clinical indication); or iterative reconstruction. Contrast material: ISOVUE; Contrast volume: 100 ml; Contrast route: IV; COMPARISON: MR HEAD/BRAIN WO/W CON 10/27/2023 6:01 PM FINDINGS: Brain: A small amount of pneumocephalus is noted. There is extensive edema in the right frontal and parietal lobe. The basilar cisterns are well maintained. There is some hemorrhagic fluid seen in the surgical bed on the right. Cerebral ventricles: No ventriculomegaly. Paranasal sinuses: Visualized sinuses are unremarkable. No fluid levels. Mastoid air cells: Visualized mastoid air cells are well aerated. Bones/joints: Postsurgical change following recent right frontal craniotomy. Soft tissues: Subcutaneous edema is also present in the surgical bed. There is 1-2 mm of right to left shift. IMPRESSION: Extensive postoperative changes following right frontal craniotomy. Some blood is seen within the right subdural space and a small amount of pneumocephalus remains. Extensive right frontal lobe edema is present. Minimal 1-2 mm of right to left shift present.
[2023-11-15] MEDS: LIDOCAINE 5% TRANSDERMAL PATCH 1 EACH TP (04:03)
[2023-11-15] MEDS: MORPHINE 4MG/ML SYRINGE 4 MG IV (04:07)
[2023-11-15] MEDS: ONDANSETRON 4MG/2ML VIAL 4 MG IV ×2 (04:07→05:55)
[2023-11-15 04:24] LABS: Basophils % 0.1 % (0.1-2.0); Eosinophils # 0.1 K/mm3 (0.0-0.4); Eosinophils % 0.3 % (0.1-12.0); Hematocrit 42.5 % (42.0-52.0); Hemoglobin 14.3 g/dL (14.1-18.0); Lymphocytes # 0.7 K/mm3 (0.7-4.5); Lymphocytes % 3.8 % (10-50); Mean Corpuscular HGB Conc 33.6 g/dL (31.8-35.4); Mean Corpuscular Hemoglobin 33.2 pg (27.0-31.2); Mean Corpuscular Volume 98.9 fl (80-94); Monocytes # 0.6 K/mm3 (0.1-1.0); Monocytes % 3.3 % (1.7-9.3); Neutrophils # 15.8 K/mm3 (1.8-7.8); Neutrophils % 92.5 % (37.0-80.0); Platelet Count 224 K/mm3 (142-424); White Blood Count 17.1 K/mm3 (4.8-10.8)
[2023-11-15 04:25] LABS: MANUAL DIFFERENTIAL MANUAL DIFFERENTIAL (MANUAL DIFF)
[2023-11-15 04:28] LABS: Chloride 103 mmol/L (98-107); Sodium 134 mmol/L (136-145)
[2023-11-15 04:29] LABS: Potassium 4.4 mmoL/L (3.5-5.1)
[2023-11-15 04:31] LABS: Alanine Aminotransferase 52 U/L (12-78); Albumin Level 3.2 g/dl (3.5-5.0); Albumin/Globulin Ratio 1.2 (1.1-1.8); Alkaline Phosphatase 59 U/L (38-126); Anion Gap 2.4 mEq/L (5-15); Aspartate Amino Transferase 36 U/L (17-59); Bilirubin,Total 0.4 mg/dl (0.2-1.3); Blood Urea Nitrogen 20 mg/dl (9-20); Carbon Dioxide 33 mmol/L (22.0-30.0); Creatinine Clearance Estimated 101 mL/min (50-200); Estimated Glomerular Filt Rate 97 ml/min (>60); GFR (African American) 117 ML/MIN (>60); Globulin 2.6 g/dL (1.3-3.2); Total Protein,Serum 5.8 g/dl (6.3-8.2)
[2023-11-15 04:32] LABS: Calcium 7.9 mg/dl (8.4-10.2); Glucose 133 mg/dl (74-100)
[2023-11-15 04:39] LABS: Lymphocytes % 6 % (10-50); Macrocytosis 1+; Monocytes % 4 % (2-9); Neutrophils % 90 % (42-76); Platelet Estimate Normal; Total Cells Counted 100
[2023-11-15] MEDS: diazePAM 10MG/2ML SYRINGE 2 MG IV (05:12)
[2023-11-15] MEDS: PROMETHAZINE HCL 25MG/ML 1ML VIAL 25 MG IV (05:12)
[2023-11-15] MEDS: IOPAMIDOL-370 (76%);100ML BOTTLE 100 ML IV (05:23)
[2023-11-15] MEDS: SODIUM CHLORIDE 0.9% 10ML SYR (RAD ONLY) 10 ML IV (05:23)
--- NOTE | 2023-11-15 06:23 | XR_ITS ---
FINAL REPORT CLINICAL HISTORY: possible aspiration FINDINGS: A single view of the chest was obtained. The heart is normal in size. The mediastinum is unremarkable. The lungs are underinflated. Chronic changes are seen at the lung bases. There is no pleural effusion. There is no pneumothorax. There is no acute osseous abnormality. IMPRESSION: Underinflation with no acute cardiopulmonary process. Reviewed, Interpreted and Dictated by Jay Raymundo MD Transcribed by Allyn Parker Authenticated and . [facility]
--- NOTE | 2023-11-15 06:31 | PC.NURSE ---
contacted [facility] in reference to a neuro consult per Dr. Sims, call back number given awaiting return call.
[2023-11-15] MEDS: levETIRAcetam 4,000 MG in 0.9 % SODIUM CHLORIDE 100 ML 280 MG IV (07:26)
[2023-11-15] MEDS: propofoL 100 ML 5.91000000000000014 MG IV (07:31)
[2023-11-15] MEDS: ETOMIDATE 40MG/20ML VIAL 30 MG IV (07:37)
[2023-11-15] MEDS: DEXAMETHASONE 4MG/ML 1ML VIAL 4 MG IV (07:38)
[2023-11-15] MEDS: SUCCINYLCHOLINE 20MG/ML 10 ML MDV 120 MG IV (07:38)
--- NOTE | 2023-11-15 07:41 | XR_ITS ---
FINAL REPORT CLINICAL HISTORY: post intubation ng tube placement COMPARISON: 11/15/2023 FINDINGS: Endotracheal tube is present with the tip 4 cm superior to the [place]. NG tube is present with the tip in the stomach. The heart size is normal. The mediastinum is normal. There is mild atelectasis at the lung bases. There are no pleural effusions. There is no pneumothorax. There is no osseous abnormality. IMPRESSION: Endotracheal tube tip 4 cm superior to the shaqu[place]. NG tube tip in the stomach. Reviewed, Interpreted and Dictated by Jay Raymundo MD Transcribed by Babs Shaw Authenticated and [facility]
--- NOTE | 2023-11-15 07:58 | XR_ITS ---
FINAL REPORT CLINICAL HISTORY: OG tube placed, confirm location FINDINGS: A single view of the abdomen was obtained. A nasogastric tube terminates in the stomach. There is a nonobstructive bowel gas pattern. There are no abnormally dilated loops of small bowel. There are no abnormal calcifications. IMPRESSION: NG tube tip in the stomach. Reviewed, Interpreted and Dictated by Jay Raymundo MD Transcribed by Allyn Parker Authenticated and [facility]
--- NOTE | 2023-11-15 08:11 | PC.NURSE ---
Dr tapia spoke with Dr Mcneal for admission at
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
[2023-11-15 08:38] LABS: ABG Base Excess 0.1 mmol/L (-2.4-2.3); ABG HCO3 23.6 mmhg (22.0-26.0); ABG Oxygen Saturation 100 % (90-100); ABG PCO2 32.3 mmhg (35.0-45.0); ABG PH 7.48 mmol/L (7.35-7.45); ABG PO2 451.8 mmhg (80-100); ABG TCO2 24.6 mmhg (23-27)
[2023-11-15 08:39] LABS: Oxygen 100 %; Tidal Volume 420; Vent Rate 20
[2023-11-15 08:40] LABS: Allen's Test acceptable; PEEP 5
--- NOTE | 2023-11-15 08:49 | PC.NURSE ---
called EMS for transport
[2023-11-15] MEDS: AMPICILLIN/SULBACTAM 3 GM in 0.9 % SODIUM CHLORIDE 100 ML IV (09:11)
[2023-11-15] MEDS: ACETAMINOPHEN 1,000MG/100ML VIAL 1000 MG IV (09:11)
--- NOTE | 2023-11-16 14:46 | PC.NURSE ---
Discussed with blood culture, faxed results to [facility] where pt was transferred to. [facility] at this time
== END 2023-11-15 09:31 | disposition other institution (70) ==
PROVIDERS: Emergency Provider Emergency Medicine; PCP Family Medicine
DX: C71.6 Malignant neoplasm of cerebellum (principal); R40.2430 Glasgow coma scale score 3-8, unspecified time; R56.9 Unspecified convulsions; G50.1 Atypical facial pain
CPT/HCPCS: 31500; 70470; 71045; 74018; 80053; 82803; 85007; 85025; 87040; 87070; 87205; 94002; 96374; 96375; 96376; 99291; J0131; J0330; J1953; J2405; J2704; Q9967